=== PATIENT | male | born 1980 | race Caucasian/White ===

== ENCOUNTER 2017-02-03 18:16 | Emergency (ER) | payer OTHER ==
[~2017-02-03] VITALS: Ht 177.8 cm; Wt 91.6 kg
[~2017-02-03 18:16] MED LIST: ANTIBIOTIC O500 U/GM TOP
[2017-02-03 19:15] LABS: ABSOLUTE BASOPHIL COUNT 0 /CUMM (0.0-0.2); ABSOLUTE EOSINOPHIL COUNT 0 /CUMM (0.0-0.7); ABSOLUTE GRANULOCYTE CT 8.7 /CUMM (1.4-6.5); ABSOLUTE LYMPH COUNT 1.2 /CUMM (1.2-3.4); ABSOLUTE MONOCYTE COUNT 1.3 /CUMM (0.10-0.60); BASOPHIL % 0.2 % (0.0-2.0); EOSINOPHIL % 0.1 % (0-5); GRANULOCYTE % 77.3 % (42.2-75.2); HEMATOCRIT 41.2 % (42-52); MEAN CORPUSCULAR HGB 30.9 PG (27.0-31.0); MEAN CORPUSCULAR VOLUME 90.8 FL (80.0-94.0); MEAN PLATELET VOLUME 8.5 FL (7.4-10.4); PLATELET COUNT 192 /CUMM (130-400); RBC DISTRIBUTION WIDTH 13.2 % (11.5-14.5); RED BLOOD CELL CT 4.54 /CUMM (4.70-6.10); WHITE BLOOD CELL COUNT 11.2 /CUMM (4.8-10.8)
--- NOTE | 2017-02-03 19:54 | ED THROAT/DENTAL COMPLAINT ---
History of Present Illness General Chief Complaint: Fever Stated Complaint: FEVER Source: patient Exam Limitations: no limitations Vital Signs & Intake/Output Vital Signs & Intake/Output Vital Signs Date Time Temp Pulse Resp B/P B/P Pulse O2 O2 Flow FiO2 Mean Ox Delivery Rate 02/03 2101 99.1 80 18 110/66 97 Room Air Room Air 02/03 1827 98.0 82 16 102/65 96 Room Air ED Intake and Output 02/04 0000 02/03 1200 Intake Total Output Total Balance Patient 202 lb Weight Weight Reported by Patient Measurement Method Allergies Coded Allergies: No Known Allergies (02/03/17) Reconcile Medications Calcium Carbonate/Vitamin D3 (Calcium 500 + D Tablet) (Unknown Strength) TABLET (Unknown Dose) PO DAILY SUPPLEMENT (Reported) Escitalopram Oxalate 10 MG TABLET 1 TAB PO DAILY MENTAL HEALTH (Reported) Multivitamin (Multi-Day Vitamins) 1 EACH TABLET 1 TAB PO DAILY SUPPLEMENT ( Reported) [place]-3/Dha/Epa/Fish Oil (Fish Oil 1,000 MG Softgel) (Unknown Strength) CAPSULE (Unknown Dose) PO DAILY SUPPLEMENT (Reported) Omeprazole 40 MG CAPSULE. 1 CAP PO DAILY GI (Reported) Triage Note: PT STATES HE STARTED LAST NIGHT WITH A FEVER AND SINCE HIS FEVER HAS BEEN GETTING HIGHER AND HIGHER. PT STATES HE HAS NO OTHER S/S BUT A FEVER. Triage Nurses Notes Reviewed? yes Onset: Gradual Duration: constant Timing: recent history Severity: moderate Severity Numbers: 5 HPI: Patient is a 36-year-old male with a past medical history of depression and gastritis who presents emergency room with a 24-hour history of gradual onset of fevers. Patient did take ibuprofen today at 1600. Patient otherwise is without complaints and denies any headache I pain year pain sore throat cough rash nausea vomiting. Patient is able tolerate by mouth (OPHELIA REYES) Past History Travel History Traveled to [place] past 21 day No Medical History Any Pertinent Medical History? see below for history Neurological: NONE EENT: NONE Cardiovascular: NONE Respiratory: NONE Gastrointestinal: GASTRITIS Hepatic: NONE Renal: NONE Musculoskeletal: NONE Psychiatric: anxiety, depression Endocrine: NONE Blood Disorders: NONE Cancer(s): NONE Tetanus Vaccine: 01/21/15 Surgical History Surgical History: non-contributory Psychosocial History What is your primary language Sinhala Tobacco Use: Never used ETOH Use: occasional use Illicit Drug Use: denies illicit drug use Family History Hx Contributory? No (OPHELIA REYES) Review of Systems Review of Systems Constitutional: Reports: see HPI, fever. EENTM: Reports: no symptoms. Respiratory: Reports: no symptoms. Cardiovascular: Reports: no symptoms. GI: Reports: no symptoms. Genitourinary: Reports: no symptoms. Musculoskeletal: Reports: no symptoms. Skin: Reports: no symptoms. Neurological/Psychological: Reports: no symptoms. Hematologic/Endocrine: Reports: no symptoms. Immunologic/Allergic: Reports: no symptoms. All Other Systems: Reviewed and Negative (OPHELIA REYES) Physical Exam Physical Exam General Appearance: no apparent distress Head: atraumatic Mouth/Throat: normal mouth inspection Comments: Well-developed well-nourished person in no acute distress HEENT: extraocular motion intact, no nystagmus. Pupils equally round and reactive to light and accommodation. Nose is atraumatic. External auditory canal and Tympanic membranes clear. Noted left posterior pharynx exudate Neck: Supple, right anterior cervical lymphadenopathy, normal range of motion without pain or tenderness Back: Nontender, no CVA tenderness. Cardiovascular: Regular rate and rhythms no murmurs rubs or gallops, normal JVP Respiratory: Chest nontender. No respiratory distress.breath sounds clear to auscultation bilaterally Abdomen: Soft, nontender nondistended, no appreciable organomegaly. Normal bowel sounds. No ascites Extremity: No edema, no calf tenderness to palpation, normal and equal pulses. Neuro: Alert oriented x3, motor sensory normal, Skin: No appreciable rash on exposed skin, skin is warm and dry. Psych: Mood and affect is normal, memory and judgment is normal. Core Measures ACS in differential dx? No Severe Sepsis Present: No Septic Shock Present: No (OPHELIA REYES) Progress Differential Diagnosis: epiglottitis, Ludwigs angina, meningitis, odontogenic abscess, nisreen-tonsillar abscess, pharyngeal for. body, stomatitis/gingivitis, strep pharyngitis, tooth fracture Plan of Care: Orders Procedure Date/time Status THROAT CULTURE W/QUICK STREP 02/03 1953 Active COMPREHENSIVE METABOLIC PANEL 02/04 1828 Complete CBC WITHOUT DIFFERENTIAL 02/04 1828 Complete Laboratory Tests 02/03/17 1830: Anion Gap 13, Estimated GFR > 60, BUN/Creatinine Ratio 11.7, Glucose 128 H, Calcium 9.0, Total Bilirubin 1.0, AST 23, ALT 37, Alkaline Phosphatase 69, Total Protein 7.9, Albumin 4.5, Globulin 3.4, Albumin/Globulin Ratio 1.3, CBC w Diff NO MAN DIFF REQ, RBC 4.54 L, MCV 90.8, MCH 30.9, RDW 13.2, MPV 8.5, Gran % 77.3 H, Lymphocytes % 10.5 L, Monocytes % 11.9 H, Eosinophils % 0.1, Basophils % 0.2, Absolute Granulocytes 8.7 H, Absolute Lymphocytes 1.2, Absolute Monocytes 1.3 H, Absolute Eosinophils 0, Absolute Basophils 0, PUBS MCHC 34.0 Patient had negative strep pharyngitis result however cultures pending. Patient was afebrile upon discharge. (OPHELIA REYES) Departure Departure Disposition: HOME OR SELF CARE Condition: Stable Clinical Impression Primary Impression: Fever Referrals: DEVORA HERNANDEZ,ADELINA (PCP/Family) Additional Instructions: As discussed continue [id number] Tylenol if needed for fever and use over- the-counter Motrin for breakthrough fever relief. If symptoms worsen or if you develop any new concerning symptom return to emergency room. If the culture of the throat becomes positive you WILL RECEIVE A phone call for further evaluation and treatment and antibiotic prescriptions. If no better on Monday follow-up with your primary care doctor Departure Forms: Customer Survey General Discharge Information (OPHELIA REYES) PA/PLUMBING [employer]SEM[employer]ER INSTALLER Co-Sign Statement Statement: ED Attending supervision documentation- [] I saw and evaluated the patient. I have also reviewed all the pertinent lab results and diagnostic results. I agree with the findings and the plan of care as documented in the PA's/PLUMBING ASSEMBLER INSTALLER's documentation. [x] I have reviewed the ED Record and agree with the PA's/PLUMBING ASSEM[employer]ER INSTALLER's documentation. [] Additions or exceptions (if any) to the PAs/PLUMBING ASSEMBLER INSTALLER's note and plan are summarized below: [] (SUSAN HERNANDEZ,CHINA Jackman)
[2017-02-03] MEDS ORDERED: OMEPRAZOLE40 M1 PO (20:21)
[2017-02-03] MEDS ORDERED: ESCITALOPRAM OX10 MG PO (20:21)
[2017-02-03] MEDS ORDERED: MULTI-DAY VITA1 EACH PO (20:22)
[2017-02-03] MEDS ORDERED: FISH OIL 1,0001 EAC2 PO (20:22)
[2017-02-03] MEDS ORDERED: CALCIUM 500 +1 EAC5 PO (20:24)
[2017-02-03 21:01] VITALS: BP 110/66
== END 2017-02-03 21:02 ==
LOC: ERH 18:16
PROVIDERS: Emergency Medicine
DX: R50.9 Fever, unspecified (principal)